=== PATIENT | female | born 2000 | race Two or more races ===

== ENCOUNTER 2023-05-15 14:28 | Emergency (ER) | payer OTHER ==
[~2023-05-15] VITALS: Ht 160 cm; Wt 120.5 kg
[2023-05-15 14:33] VITALS: TEMP 98.5
[2023-05-15] MEDS ORDERED: GUAI600T50 PO (14:33)
[2023-05-15] MEDS ORDERED: PSEU-191 PO (14:33)
[2023-05-15 16:30] LABS: APPEARANCE,URINE CLEAR (CLEAR); BILIRUBIN,URINE NEGATIVE (NEGATIVE); COLOR,URINE YELLOW (YELLOW); GLUCOSE, URINE (UA) NEGATIVE (NEGATIVE); KETONES,URINE NEGATIVE (NEGATIVE); LEUKOCYTE ESTERASE ,URINE NEGATIVE (NEGATIVE); NITRATE,URINE NEGATIVE (NEGATIVE); OCCULT BLOOD,URINE MODERATE (NEGATIVE); PROTEIN,URINE TRACE mg/dL (NEGATIVE); SPECIFIC GRAVITIY, URINE 1.023 (1.003-1.030); UROBILINOGEN,URINE <=1.0 mg/dL (<=1.0)
[2023-05-15 16:37] LABS: ALCOHOL, URINE DRUG SCREEN NEGATIVE (NEGATIVE); AMPHET/METH SCREEN,URINE NEGATIVE (NEGATIVE); BARBITURATE SCREEN, URINE NEGATIVE (NEGATIVE); BENZODIAZEPINES SCREEN,URINE NEGATIVE (NEGATIVE); CANNABINOID SCREEN,URINE POSITIVE (NEGATIVE); COCAINE SCREEN,URINE NEGATIVE (NEGATIVE); METHADONE SCREEN, URINE NEGATIVE (NEGATIVE); OPIATE SCREEN,URINE NEGATIVE (NEGATIVE); PHENCYCLIDINE SCREEN,URINE NEGATIVE (NEGATIVE)
[2023-05-15 16:52] LABS: BACTERIA,URINE None Seen /HPF (None Seen); WBC,URINE 0-2 /HPF (0-5)
[2023-05-15 17:18] VITALS: BP 126/74; PULSE 83; RESP 16
== END 2023-05-15 17:34 | disposition home or self-care (01) ==
LOC: EMS 14:33
DX: F12.90 Cannabis use, unspecified, uncomplicated (principal)
CPT/HCPCS: 80307; 81001; 99283

== ENCOUNTER 2023-06-08 18:46 | Emergency (ER) | payer OTHER ==
[~2023-06-08] VITALS: Ht 157.5 cm; Wt 100.0 kg
[~2023-06-08 18:46] MED LIST: GUAI600T50 PO; PSEU-191 PO
[2023-06-08 18:59] VITALS: BP 146/84; PULSE 84; RESP 18; TEMP 98
== END 2023-06-08 20:00 | disposition left against medical advice (07) ==
LOC: EMS 19:07
DX: F41.9 Anxiety disorder, unspecified (principal); Z53.21 Procedure and treatment not carried out due to patient leaving prior to being seen by health care provider
CPT/HCPCS: 99281; Z7502